=== PATIENT | female | born 1960 | race Caucasian/White ===

== ENCOUNTER 2024-07-15 05:56 | Day surgery (SDC) | payer MEDICARE ==
[2024-07-15] MEDS ORDERED: LACTATED RINGERS 1,000 ML IV SCH (06:01)
[2024-07-15] MEDS ORDERED: LIDOCAINE 1% (10MG/ML) FOR IV START INTRADERMA PRN (06:01)
[2024-07-15] MEDS: IV FLUID CONTINUATION 1,000 ML IV ONE (06:35)
[2024-07-15 06:50] VITALS: TEMP 98.4
[2024-07-15 06:50] LABS: Glucose,Whole Blood 119 mg/dL (70-110)
[2024-07-15] MEDS ORDERED: LIDOCAINE 1% INJ 10MG/ML (20 ML MDV) ONE (06:58)
[2024-07-15] MEDS ORDERED: PROPOFOL 10 MG/ML 20 ML VIAL IV ONE (06:58)
[2024-07-15] MEDS: LACTATED RINGERS 1,000 ML IV ONE (07:04)
--- NOTE | 2024-07-15 07:26 | P.PCN ---
Date of Procedure: 07/15/24 Procedure(s) Performed: Brief history: Patient is a pleasant 63-year-old white female scheduled for an elective upper endoscopy as well as colonoscopy as a part of evaluation of GERD and screening for colon cancer. She has a family history of colon cancer diagnosed in her grandmother and grandfather on her maternal side.. Procedure performed: Esophagogastroduodenoscopy with biopsy Colonoscopy Preoperative diagnosis: GERD Screening for colon cancer and family history of colon cancer Anesthesia: MAC Procedure: After informed consent was obtained from the patient was brought into the endoscopy unit and IV sedation was administered by anesthesia under continuous monitoring. Initially upper endoscopy was done. The Olympus GF 160 video endoscope was inserted inserted into the mouth and esophagus intubated without any difficulty and was gradually advanced into the stomach and duodenum and care fully examined. The bulb and second part of the duodenum appeared normal. The scope was then withdrawn into the stomach adequately insufflated with air and upon careful examination the antrum had mild gastritis and biopsies were done from this area. Mucosa of the d body, cardia and fundus appeared normal. The scope was then withdrawn into the esophagus. Small hiatal hernia noted. The GE junction was located at 36 cm to the incisors. It appeared regular linear erosions consistent with LA grade B reflux esophagitis. There was very distal esophageal stricture identified. Rest of the esophagus appeared normal. Patient tolerated the procedure well. At this time the patient continued to remain sedation. Initial digital rectal examination was normal. Olympus CF 160 video colonoscope was then inserted into the rectum and gradually advanced to the cecum without any difficulty. Careful examination was performed as the scope was gradually being withdrawn. The prep was excellent. The cecum, ascending colon, transverse colon, descending colon, sigmoid colon and rectum appeared normal. Surgical anastomosis from previous diverticular resection was located at 15 cm from the anal verge. Scattered left-sided diverticulosis seen. Retroflexion was performed in the rectum and no lesions were noted. Patient tolerated the procedure well. Impression: 1. Upper endoscopy revealed mild antral gastritis and linear erosions in the distal esophagus consistent with LA grade B reflux esophagitis with early distal esophageal stricture 2. Colonoscopy revealed scattered sigmoid diverticulosis but no evidence of colorectal neoplasia Recommendations: Findings of this examination were discussed with the patient as well as her family. She was advised to increase omeprazole to 20 mg daily and follow antireflux measures. Recommended repeat screening colonoscopy in 5 years from now because of the family history of colon cancer
[2024-07-15 07:33] VITALS: BP 106/60; PULSE 71; RESP 16
== END 2024-07-15 08:21 | disposition home or self-care (01) ==
LOC: ORWHC2ENDO 05:56
PROVIDERS: ATTEND Internal Medicine Gastroenterology
DX: Z12.11 Encounter for screening for malignant neoplasm of colon (principal); K29.50 Unspecified chronic gastritis without bleeding; K57.30 Diverticulosis of large intestine without perforation or abscess without bleeding; I25.2 Old myocardial infarction; K21.9 Gastro-esophageal reflux disease without esophagitis; I10 Essential (primary) hypertension; E78.5 Hyperlipidemia, unspecified; F32.A Depression, unspecified; Z80.0 Family history of malignant neoplasm of digestive organs; Z88.5 Allergy status to narcotic agent; Z79.899 Other long term (current) drug therapy
CPT/HCPCS: 88305; 43239; J2003; J2704; G0105